=== PATIENT | female | born 1980 | race Caucasian/White ===

== ENCOUNTER 2017-04-23 02:26 | Emergency (ER) | payer SELFPAY | END 2017-04-23 03:09 | disposition home or self-care (01) | LOC: D.ER 02:26 | DX: H92.02 Otalgia, left ear (principal); H60.502 Unspecified acute noninfective otitis externa, left ear; H66.92 Otitis media, unspecified, left ear ==

== ENCOUNTER 2018-01-03 09:20 | Emergency (ER) | payer MEDICAID ==
[~2018-01-03] VITALS: Ht 160 cm; Wt 97.7 kg
[2018-01-03 09:25] VITALS: Ht 160 cm; Wt 97.7 kg
[2018-01-03 12:30] VITALS: BP 132/77
== END 2018-01-03 12:30 | disposition home or self-care (01) ==
LOC: D.ER 09:20
DX: G43.909 Migraine, unspecified, not intractable, without status migrainosus (principal); R11.0 Nausea; M54.5 Low back pain

== ENCOUNTER 2018-02-06 22:44 | Emergency (ER) | payer MEDICAID ==
[~2018-02-06] VITALS: Ht 160 cm; Wt 97.7 kg
[2018-02-06 22:49] VITALS: Ht 160 cm; Wt 97.7 kg
[2018-02-07] MEDS ORDERED: CLEOCIN HCL300 MG PO (00:17)
[2018-02-07] MEDS ORDERED: TORADOL10 MG PO (00:17)
[2018-02-07 01:00] VITALS: BP 152/91
== END 2018-02-07 01:00 | disposition home or self-care (01) ==
LOC: D.ER 22:44
DX: K05.30 Chronic periodontitis, unspecified (principal)

== ENCOUNTER 2018-02-25 06:46 | Emergency (ER) | payer MEDICAID ==
[~2018-02-25] VITALS: Ht 160 cm; Wt 97.7 kg
[~2018-02-25 06:46] MED LIST: CLEOCIN HCL300 MG PO; TORADOL10 MG PO
[2018-02-25 06:53] VITALS: Ht 160 cm; Wt 97.7 kg
[2018-02-25] MEDS ORDERED: PROMETHAZINE V120 M1 PO (07:20)
[2018-02-25] MEDS ORDERED: ZITHROMAX TRI-500 MG PO (07:20)
[2018-02-25 07:43] LABS: APPEARANCE CLEAR (CLEAR); BILIRUBIN NEGATIVE (NEGATIVE); COLOR YELLOW (YELLOW); GLUCOSE NEGATIVE (NEGATIVE); HCG URINE NEGATIVE (NEGATIVE); KETONE NEGATIVE (NEGATIVE); NITRITE NEGATIVE (NEGATIVE); PROTEIN NEGATIVE (NEGATIVE); UROBILINOGEN NORMAL (NORMAL)
[2018-02-25 08:15] VITALS: BP 126/42
== END 2018-02-25 08:19 | disposition home or self-care (01) ==
LOC: D.ER 06:46
PROVIDERS: Family Medicine
DX: J40 Bronchitis, not specified as acute or chronic (principal); R19.7 Diarrhea, unspecified

== ENCOUNTER 2018-04-23 06:52 | Emergency (ER) | payer MEDICAID ==
[~2018-04-23] VITALS: Ht 160 cm; Wt 97.7 kg
[~2018-04-23 06:52] MED LIST changes: +PROMETHAZINE V120 M1 PO; +ZITHROMAX TRI-500 MG PO
[2018-04-23 06:57] VITALS: Ht 160 cm; Wt 97.7 kg
[2018-04-23 07:40] LABS: APPEARANCE CLEAR (CLEAR); BILIRUBIN NEGATIVE (NEGATIVE); COLOR YELLOW (YELLOW); GLUCOSE NEGATIVE (NEGATIVE); KETONE NEGATIVE (NEGATIVE); NITRITE NEGATIVE (NEGATIVE); PROTEIN NEGATIVE (NEGATIVE); SPECIFIC GRAVITY 1.025 (1.005-1.020); UROBILINOGEN NORMAL (NORMAL)
[2018-04-23] MEDS ORDERED: ACETAMINOPHEN500 M1 PO (07:50)
[2018-04-23] MEDS ORDERED: CYCLOBENZAPRINE10 MG PO (07:50)
[2018-04-23] MEDS ORDERED: IBUPROFEN800 MG PO (07:50)
[2018-04-23 08:27] LABS: HCG URINE NEGATIVE (NEGATIVE)
[2018-04-23 09:34] VITALS: BP 156/95
== END 2018-04-23 08:52 | disposition home or self-care (01) ==
LOC: D.ER 06:52
PROVIDERS: Family Medicine
DX: S39.012A Strain of muscle, fascia and tendon of lower back, initial encounter (principal); X58.XXXA Exposure to other specified factors, initial encounter; Y93.89 Activity, other specified; Y92.89 Other specified places as the place of occurrence of the external cause; M54.6 Pain in thoracic spine

== ENCOUNTER 2018-11-28 13:55 | Emergency (ER) | payer MEDICAID ==
[~2018-11-28] VITALS: Ht 160 cm; Wt 97.7 kg
[~2018-11-28 13:55] MED LIST changes: +ACETAMINOPHEN500 M1 PO; +CYCLOBENZAPRINE10 MG PO; +IBUPROFEN800 MG PO
[2018-11-28 14:40] VITALS: Ht 160 cm; Wt 97.7 kg
[2018-11-28] MEDS ORDERED: VOLTAREN75 MG PO (15:56)
[2018-11-28] MEDS ORDERED: ROBAXIN500 MG PO (15:56)
[2018-11-28 17:00] VITALS: BP 154/76
== END 2018-11-28 17:09 | disposition home or self-care (01) ==
LOC: D.ER 13:55
DX: S49.91XA Unspecified injury of right shoulder and upper arm, initial encounter (principal); W18.30XA Fall on same level, unspecified, initial encounter; Y93.89 Activity, other specified; Y92.89 Other specified places as the place of occurrence of the external cause; M25.511 Pain in right shoulder

== ENCOUNTER 2019-05-21 12:03 | Emergency (ER) | payer MEDICAID ==
[~2019-05-21] VITALS: Ht 160 cm; Wt 107.3 kg
[~2019-05-21 12:03] MED LIST changes: +ROBAXIN500 MG PO; +VOLTAREN75 MG PO
[2019-05-21 12:30] VITALS: Ht 160 cm; Wt 107.3 kg
[2019-05-21] MEDS ORDERED: [UNRECOGNIZED DRUG - REMARK] (12:33)
[2019-05-21] MEDS ORDERED: ACETAMINOPHEN500 M1 PO (13:32)
[2019-05-21] MEDS ORDERED: CYCLOBENZAPRINE10 MG PO (13:32)
[2019-05-21] MEDS ORDERED: IBUPROFEN800 MG PO (13:32)
[2019-05-21 14:53] VITALS: BP 142/93
== END 2019-05-21 19:15 | disposition home or self-care (01) ==
LOC: D.ER 12:03
DX: T14.8XXA Other injury of unspecified body region, initial encounter (principal); M25.552 Pain in left hip

== ENCOUNTER 2019-12-01 16:24 | Emergency (ER) | payer SELFPAY ==
[~2019-12-01] VITALS: Ht 160 cm; Wt 97.7 kg
[~2019-12-01 16:24] MED LIST changes: +[UNRECOGNIZED DRUG - REMARK]
[2019-12-01 16:33] VITALS: Ht 160 cm; Wt 97.7 kg
[2019-12-01] MEDS ORDERED: TORADOL10 MG PO (18:04)
[2019-12-01] MEDS ORDERED: METHOCARBAMOL500 MG PO (18:04)
[2019-12-01 18:12] VITALS: BP 169/90
== END 2019-12-01 18:12 | disposition home or self-care (01) ==
LOC: D.ER 16:24
DX: M62.830 Muscle spasm of back (principal); M54.16 Radiculopathy, lumbar region